=== PATIENT | female | born 1955 | race Caucasian/White ===

== ENCOUNTER → 2017-07-02 | Outpatient (CLI) | payer MEDICARE, OTHER ==
--- NOTE | 2017-07-02 17:11 | RADIOLOGY REPORT (SQ) ---
EXAM DESCRIPTION: FOOT LEFT COMPLETE COMPLETED DATE/TIME: 07/02/2017 4:24 pm REASON FOR STUDY: PAIN IN LEFT FOOT M79.672 PAIN IN LEFT FOOT COMPARISON: 10/31/2012 NUMBER OF VIEWS: Three views. TECHNIQUE: AP, lateral and oblique radiographic images acquired of the left foot. LIMITATIONS: None. FINDINGS: MINERALIZATION: Normal. BONES: No acute fracture or dislocation. No worrisome bone lesions. Screw tracks from hardware shelton olvin seen on plain films from 10/31/2012 are no longer apparent. JOINTS: There is a hallux valgus mild deformity with 1st metatarsophalangeal joint space narrowing an d bony spurring. There is 1st through 4th tarsometatarsal joint space narrowing and bony spurring SOFT TISSUES: No soft tissue swelling. No foreign body. OTHER: No other significant finding. IMPRESSION: No acute fracture or malalignment. 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
== END ==
LOC: OD 15:57
PROVIDERS: ATTEND Nurse Practitioner Acute Care
DX: M79.672 Pain in left foot (principal); M19.072 Primary osteoarthritis, left ankle and foot

== ENCOUNTER → 2018-03-19 | Outpatient (CLI) | payer MEDICARE, OTHER ==
--- NOTE | 2018-03-19 14:41 | WOMENS IMAGING REPORT ---
EXAM DESCRIPTION: BILAT DIAGNOSTIC MAMMO W/CAD; U/S BREAST UNILAT LIMITED COMPLETED DATE/TIME: 03/19/2018 12:40 pm; 03/19/2018 2:29 pm REASON FOR STUDY: N63.13 RIGHT BREAST MASS; RT BREAST N63.13 N63.13 ; N63.13 UNSPECIFIED LUMP IN T HE RIGHT BREAST, LOWER OUTER MITUL COMPARISON: None. TECHNIQUE: Standard craniocaudal and mediolateral oblique views of each breast recorded using digita l acquisition. True lateral and cone compression views right breast. LIMITATIONS: None. FINDINGS: RIGHT BREAST MASSES: Irregular mass lower outer quadrant posterior 3rd corresponding to palpable marker. CALCIFICATIONS: No new or suspicious calcifications. ARCHITECTURAL DISTORTION: None. DEVELOPING DENSITY: None. ASYMMETRY: None noted. OTHER: No other significant findings. LEFT BREAST MASSES: No suspicious masses. CALCIFICATIONS: No new or suspicious calcifications. ARCHITECTURAL DISTORTION: None. DEVELOPING DENSITY: None. ASYMMETRY: None noted. OTHER: No other significant finding. Read with the assistance of CAD: .[facility] - R2 Cenova Version 1.3 .[facility] - R2 Cenova Version 2.1 .[facility] - R2 Cenova Version 2.4 .[facility] [place] - R2 Cenova Version 2.4 .[facility] - R2 Advisory Internship Version 9.2 Ultrasound of the right breast demonstrates, lower outer quadrant 6 o'clock position posteriorly, 2.0 x 1.8 x 2.1 cm irregular hypoechoic lesion with internal flow and posterior shadowing. IMPRESSION: Suspicious mass right breast. BREAST DENSITY: b. There are scattered areas of fibroglandular density. BIRAD: 4 Suspicious. Biopsy should be considered. RECOMMENDATION: RECOMMENDED FOLLOW UP: Birads 4: Biopsy should be performed in the absence of clinic al contraindication. SPECIFIC INTERVENTION/IMAGING/CONSULTATION RECOMMENDED:The suspicious finding(s) amenable to US guide d core/vacuum assisted biopsy. COMMUNICATION:The imaging findings were not discussed with the patient. Her referring provider has be en notified of the findings. COMMENT: The patient has been notified of the results by letter per MQSA requirements. Additional no tification policies are in place for contacting patient with suspicious or incomplete findings. Quality ID #225: The [employer] recommends an annual screening mammogram for women aged 40 years or over. This facility utilizes a reminder system to ensure that all patients receive reminder letters, and/or direct phone calls for appointments. This includes reminders for routine scr eening mammograms, diagnostic mammograms, or other Breast Imaging Interventions when appropriate. Th is patient will be placed in the appropriate reminder system. The [employer] (ACR) has developed recommendations for screening MRI of the breast s in certain patient populations, to be used in conjunction with mammography. Breast MRI surveillanc e may be appropriate for women with more than 20% lifetime risk of developing breast cancer as deter mined by genetic testing, significant family history of the disease, or history of mantle radiation f or Hodgkins Disease. ACR Practice Guidelines 2008. TECHNICAL DOCUMENTATION: FINDING NUMBER: (1) ASSESSMENT: (1) JOB ID: [id number] [employer]- All Rights Reserved Reading location - IP/workstation name: [email or web address]
--- NOTE | 2018-03-19 14:41 | WOMENS IMAGING REPORT ---
EXAM DESCRIPTION: BILAT DIAGNOSTIC MAMMO W/CAD; U/S BREAST UNILAT LIMITED COMPLETED DATE/TIME: 03/19/2018 12:40 pm; 03/19/2018 2:29 pm REASON FOR STUDY: N63.13 RIGHT BREAST MASS; RT BREAST N63.13 N63.13 ; N63.13 UNSPECIFIED LUMP IN T HE RIGHT BREAST, LOWER OUTER MITUL COMPARISON: None. TECHNIQUE: Standard craniocaudal and mediolateral oblique views of each breast recorded using digita l acquisition. True lateral and cone compression views right breast. LIMITATIONS: None. FINDINGS: RIGHT BREAST MASSES: Irregular mass lower outer quadrant posterior 3rd corresponding to palpable marker. CALCIFICATIONS: No new or suspicious calcifications. ARCHITECTURAL DISTORTION: None. DEVELOPING DENSITY: None. ASYMMETRY: None noted. OTHER: No other significant findings. LEFT BREAST MASSES: No suspicious masses. CALCIFICATIONS: No new or suspicious calcifications. ARCHITECTURAL DISTORTION: None. DEVELOPING DENSITY: None. ASYMMETRY: None noted. OTHER: No other significant finding. Read with the assistance of CAD: .[facility] - R2 Cenova Version 1.3 .[facility] - R2 Cenova Version 2.1 .[facility] - R2 Cenova Version 2.4 .[facility] [place] - R2 Cenova Version 2.4 .[facility] [place] - R2 Firearms Instructor Version 9.2 Ultrasound of the right breast demonstrates, lower outer quadrant 6 o'clock position posteriorly, 2.0 x 1.8 x 2.1 cm irregular hypoechoic lesion with internal flow and posterior shadowing. IMPRESSION: Suspicious mass right breast. BREAST DENSITY: b. There are scattered areas of fibroglandular density. BIRAD: 4 Suspicious. Biopsy should be considered. RECOMMENDATION: RECOMMENDED FOLLOW UP: Birads 4: Biopsy should be performed in the absence of clinic al contraindication. SPECIFIC INTERVENTION/IMAGING/CONSULTATION RECOMMENDED:The suspicious finding(s) amenable to US guide d core/vacuum assisted biopsy. COMMUNICATION:The imaging findings were not discussed with the patient. Her referring provider has be en notified of the findings. COMMENT: The patient has been notified of the results by letter per MQSA requirements. Additional no tification policies are in place for contacting patient with suspicious or incomplete findings. Quality ID #225: The [employer] recommends an annual screening mammogram for women aged 40 years or over. This facility utilizes a reminder system to ensure that all patients receive reminder letters, and/or direct phone calls for appointments. This includes reminders for routine scr eening mammograms, diagnostic mammograms, or other Breast Imaging Interventions when appropriate. Th is patient will be placed in the appropriate reminder system. The [employer] (ACR) has developed recommendations for screening MRI of the breast s in certain patient populations, to be used in conjunction with mammography. Breast MRI surveillanc e may be appropriate for women with more than 20% lifetime risk of developing breast cancer as deter mined by genetic testing, significant family history of the disease, or history of mantle radiation f or Hodgkins Disease. ACR Practice Guidelines 2008. TECHNICAL DOCUMENTATION: FINDING NUMBER: (1) ASSESSMENT: (1) JOB ID: [id number] [employer]- All Rights Reserved Reading location - IP/workstation name: [email or web address]
== END ==
LOC: RAD 14:27
PROVIDERS: ATTEND Physician Assistant Medical
DX: N63.13 Unspecified lump in the right breast, lower outer quadrant (principal)
CPT/HCPCS: 76642; 77066

== ENCOUNTER → 2018-04-08 | Outpatient (CLI) | payer MEDICARE, OTHER ==
[2018-04-08 14:28] LABS: HEMATOCRIT 43.4 % (36.0-47.0); HEMOGLOBIN 14.7 g/dL (12.0-15.5); MEAN CORPUSCULAR HEMOGLOBIN 31.6 pg (27.0-33.4); MEAN CORPUSCULAR HGB CONC 33.8 g/dL (32.0-36.0); MEAN CORPUSCULAR VOLUME 93 fl (80-97); PLATELET COUNT 228 10^3/uL (150-450); RED BLOOD COUNT 4.65 10^6/uL (3.72-5.28); RED CELL DISTRIBUTION WIDTH 13.2 % (11.5-14.0)
[2018-04-08 14:50] LABS: ALANINE AMINOTRANSFERASE 19 U/L (9-52); ALBUMIN 4.5 g/dL (3.5-5.0); ALKALINE PHOSPHATASE 108 U/L (38-126); ANION GAP 9 (5-19); ASPARTATE AMINO TRANSFERASE 21 U/L (14-36); BILIRUBIN,DIRECT 0.3 mg/dL (0.0-0.4); BILIRUBIN,TOTAL 0.4 mg/dL (0.2-1.3); BLOOD UREA NITROGEN 15 mg/dL (7-20); CALCIUM 9.7 mg/dL (8.4-10.2); CARBON DIOXIDE 29 mmol/L (22-30); CHLORIDE 102 mmol/L (98-107); GLUCOSE 87 mg/dL (75-110); POTASSIUM 4.4 mmol/L (3.6-5.0); SODIUM 139.6 mmol/L (137-145); TOTAL PROTEIN 7.4 g/dL (6.3-8.2)
--- NOTE | 2018-04-08 14:53 | RADIOLOGY REPORT (SQ) ---
EXAM DESCRIPTION: CHEST PA/LATERAL COMPLETED DATE/TIME: 04/08/2018 2:15 pm REASON FOR STUDY: PRE OP COMPARISON: Two-view chest 04/26/2015 EXAM PARAMETERS: NUMBER OF VIEWS: two views TECHNIQUE: Digital Frontal and Lateral radiographic views of the chest acquired. RADIATION DOSE: NA LIMITATIONS: none FINDINGS: LUNGS AND PLEURA: No opacities, masses or pneumothorax. No pleural effusion. MEDIASTINUM AND HILAR STRUCTURES: No masses or contour abnormalities. HEART AND VASCULAR STRUCTURES: Heart normal size. No evidence for failure. BONES: No acute findings. HARDWARE: None in the chest. OTHER: No other significant finding. IMPRESSION: NO SIGNIFICANT RADIOGRAPHIC FINDING IN THE CHEST. TECHNICAL DOCUMENTATION: JOB ID: [id number] [employer]- All Rights Reserved Reading location - IP/workstation name: [email or web address]
--- NOTE | 2018-04-08 17:01 | EKG REPORT ---
SEVERITY:- ABNORMAL ECG - SINUS RHYTHM EARLY PRECORDIAL TRANSITION, CONSIDER OLD TRUE POST PR. : Confirmed by: Terrell Gomez MD 08-Apr-2018 17:00:36
== END ==
LOC: OD 12:59
PROVIDERS: ATTEND Surgery
DX: Z01.810 Encounter for preprocedural cardiovascular examination (principal); Z01.818 Encounter for other preprocedural examination; R05 Cough; C50.911 Malignant neoplasm of unspecified site of right female breast; I10 Essential (primary) hypertension; M19.90 Unspecified osteoarthritis, unspecified site; F41.9 Anxiety disorder, unspecified; F41.0 Panic disorder [episodic paroxysmal anxiety]; F90.9 Attention-deficit hyperactivity disorder, unspecified type; Z86.14 Personal history of Methicillin resistant Staphylococcus aureus infection; Z96.653 Presence of artificial knee joint, bilateral
CPT/HCPCS: 36415; 71046; 80053; 85027; 93005; 93010

== ENCOUNTER 2018-05-02 09:26 | Observation (INO) | payer MEDICARE, OTHER ==
[2018-04-24 10:15] LABS: HEMATOCRIT 41.6 % (36.0-47.0); HEMOGLOBIN 14.4 g/dL (12.0-15.5); MEAN CORPUSCULAR HEMOGLOBIN 31.7 pg (27.0-33.4); MEAN CORPUSCULAR HGB CONC 34.5 g/dL (32.0-36.0); MEAN CORPUSCULAR VOLUME 92 fl (80-97); PLATELET COUNT 236 10^3/uL (150-450); RED BLOOD COUNT 4.53 10^6/uL (3.72-5.28); WHITE BLOOD COUNT 4.4 10^3/uL (4.0-10.5)
[2018-04-24 10:47] LABS: ALANINE AMINOTRANSFERASE 23 U/L (9-52); ALBUMIN 4.4 g/dL (3.5-5.0); ALKALINE PHOSPHATASE 95 U/L (38-126); ANION GAP 8 (5-19); ASPARTATE AMINO TRANSFERASE 19 U/L (14-36); BILIRUBIN,DIRECT 0.1 mg/dL (0.0-0.4); BILIRUBIN,TOTAL 0.6 mg/dL (0.2-1.3); BLOOD UREA NITROGEN 15 mg/dL (7-20); CALCIUM 9.7 mg/dL (8.4-10.2); CARBON DIOXIDE 30 mmol/L (22-30); CHLORIDE 104 mmol/L (98-107); GLUCOSE 91 mg/dL (75-110); POTASSIUM 3.9 mmol/L (3.6-5.0); SODIUM 142.3 mmol/L (137-145); TOTAL PROTEIN 7.2 g/dL (6.3-8.2)
--- NOTE | 2018-04-24 19:12 | EKG REPORT ---
SEVERITY:- NORMAL ECG - SINUS RHYTHM : Confirmed by: Nilam Rodriguez MD 24-Apr-2018 19:11:27
[~2018-05-02 09:26] MED LIST: IBUPROFEN 800 MG in NORMAL SALINE 250 ML IV PRN; LACTATED RINGERS 1000 ML IV PRN; LIDOCAINE 0.5% INJ-PF (5 MG/ML) 50 ML SDV SUBCUT PRN; LIDOCAINE 4% TRANSPARENT DRESSING 5 GM KIT TP PRN; VANCOMYCIN HCL 1,000 MG in DEXTROSE 5%-WATER 250 ML IV PRN
[2018-05-02] MEDS ORDERED: LIDOCAINE 4% TRANSPARENT DRESSING 5 GM KIT ONE (09:49)
[2018-05-02] MEDS ORDERED: MIDAZOLAM 2 MG/2 ML INJ ONE (11:04)
[2018-05-02] MEDS ORDERED: FENTANYL CITRATE INJ/PF 100 MCG/2 ML AMPUL ONE ×2 (11:04→15:59)
[2018-05-02] MEDS ORDERED: HYDROMORPHONE HCL INJ/PF 2 MG/ML AMPULE ONE (11:04)
[2018-05-02] MEDS ORDERED: PROPOFOL INJ 200 MG/20 ML VIAL IV ONE (11:04)
[2018-05-02] MEDS ORDERED: ACETAMINOPHEN 1,000 MG/100 ML RTUPB IV ONE (11:05)
[2018-05-02] MEDS ORDERED: METHYLENE BLUE 50 MG/10 ML AMPULE ONE (11:22)
[2018-05-02] MEDS ORDERED: BUPIVACAINE HCL 0.25 % INJ/PF (2.5 MG/1 ML) 30 ML VIAL ONE (11:22)
[2018-05-02] MEDS ORDERED: ONDANSETRON HCL INJ/PF 4 MG/2 ML SDV ONE ×2 (12:11→15:58)
[2018-05-02] MEDS ORDERED: SUCCINYLCHOLINE CHLORIDE INJ 200 MG/10 ML VIAL ONE (12:11)
[2018-05-02] MEDS ORDERED: DEXAMETHASONE SOD PHOSPHATE INJ 4 MG/1 ML VIAL ONE (12:11)
[2018-05-02] MEDS ORDERED: ONDANSETRON HCL INJ/PF 4 MG/2 ML SDV IV PRN ×2 (13:07→15:16)
[2018-05-02] MEDS ORDERED: FENTANYL CITRATE INJ/PF 100 MCG/2 ML AMPUL IV PRN ×3 (13:07)
[2018-05-02] MEDS ORDERED: MORPHINE SULFATE 10 MG/ML INJ IV PRN ×2 (13:07→15:16)
[2018-05-02] MEDS ORDERED: DIPHENHYDRAMINE HCL 50 MG/ML VIAL IV PRN (13:07)
[2018-05-02] MEDS ORDERED: PROMETHAZINE HCL INJ 25 MG/1 ML VIAL IV PRN (13:07)
[2018-05-02] MEDS ORDERED: MEPERIDINE HCL/PF INJ 25 MG/1 ML DISP.SYRIN IV PRN (13:07)
[2018-05-02] MEDS ORDERED: MICROFIBRILLAR COLLAGEN 1 GM PACK ONE (14:13)
--- NOTE | 2018-05-02 14:38 | RADIOLOGY REPORT (SQ) ---
EXAM DESCRIPTION: NM LYMPHATICS/LYMPH GLANDS COMPLETED DATE/TIME: 05/02/2018 12:22 pm REASON FOR STUDY: RT BREAST CA C50.911 MALIGNANT NEOPLASM OF UNSP SITE OF RIGHT FEMALE BONILLA Z79.01 SENIOR CARE (CURRENT) USE OF ANTICOAGULANTS COMPARISON: None. RADIONUCLIDE AND DOSE: 561 microcuries TC-99m tilmanocept - Lymphoseek. The route of agent administration: Subcutaneous in the skin. TECHNIQUE: The skin of the right breast was prepped in sterile fashion. The radiopharmaceutical was administered in equally divided doses in the periareolar breast. LIMITATIONS: None. FINDINGS: Images demonstrate activity at the injection site. IMPRESSION: ADMINISTRATION OF RADIOPHARMACEUTICAL FOR SENTINEL LYMPH NODE EVALUATION. TECHNICAL DOCUMENTATION: JOB ID: [id number] [email or web address]- All Rights Reserved Reading location - IP/workstation name: [email or web address]
[2018-05-02] MEDS ORDERED: ALPRAZOLAM PO PRN (15:19)
[2018-05-02] MEDS ORDERED: (PENDING PHARMACY ID) (Dextroamphetamine/Amphetamine [Adderall 30 Mg Tablet] 30 MG) PO SCH (18:00)
[2018-05-02] MEDS: BUPROPION HCL 100 MG TABLET PO SCH (22:28)
[2018-05-03] MEDS: BUPROPION HCL 100 MG TABLET PO SCH (05:21)
[2018-05-03] MEDS: OXYCODONE-ACETAMINOPHEN 5-325 MG TABLET PO PRN ×2 (05:21→09:34)
[2018-05-03 10:00] VITALS: BP 116/52
[2018-05-03] MEDS ORDERED: DOCUSATE SODIUM 100 MG CAPSULE PO SCH (10:00)
[2018-05-03] MEDS ORDERED: TRAZODONE HCL 50 MG TABLET PO SCH (22:00)
--- NOTE | 2018-05-07 08:17 | PDOC DISCHARGE SUMMARY ---
General - Admit/Disc Date/PCP Admission Date/Primary Care Provider: 05/02/18 15:16 VAMSI SANTAMARIA PA-C Discharge Date: 05/03/18 - Discharge Diagnosis (1) Breast cancer Is this a current diagnosis for this admission?: Yes - Additional Information Discharge Diet: As Tolerated Discharge Activity: No Lifting Over 10 Pounds Home Medications: Alprazolam [Xanax XR 2 mg Tablet Extended Release] 1 tab PO BID PRN #8 tab.sr.2 4h 02/24/14 Bupropion HCl [Wellbutrin 100 mg Tablet] 100 mg PO TID 04/24/18 Dextroamphetamine/Amphetamine [Adderall 30 mg Tablet] 30 mg PO BID 04/24/18 Oxycodone HCl [Oxycodone HCl 10 MG Tablet] 10 mg PO TID 04/24/18 Trazodone HCl 100 mg PO DAILY 05/02/18 History of Present Illness History of Present Illness: TRACY LU is a 62 year old female admitted to the hospital for definitive surgical care of her right-sided breast cancer. The patient underwent mastectomy with sentinel lymph node biopsy. She was transferred to the floor in stable condition. Hospital Course Hospital Course: Patient was transferred to the floor after surgery. She remained in stable condition throughout her hospital stay. She began ambulating, tolerating a diet, her pain was controlled with pain medications, and on postoperative day #1 it was felt that she had reached maximal hospital benefit. At this time the patient was fit for discharge. Physical Exam Vital Signs: Temp Pulse Resp BP Pulse Ox 98.1 F 93 16 116/52 L 94 05/03/18 09:57 05/03/18 09:57 05/03/18 09:57 05/03/18 09:57 05/03/18 09:57 Results Laboratory Results: 04/24/18 09:40 04/24/18 09:40 Impressions: Lymph Scan Nuclear Medicine 05/02/18 00:00 IMPRESSION: ADMINISTRATION OF RADIOPHARMACEUTICAL FOR SENTINEL LYMPH NODE EV ALUATION. Qualifiers - * PATIENT BEING DISCHARGED WITH ANY OF THE FOLLOWING DIAGNOSIS: No Plan Discharge Plan: Discharge home. Diet as tolerated. Activity: Nonstrenuous. Wear Anibal wrap for 48 hours, then remove and shower. Replace Anibal wrap, and wear for 2 weeks. Record drain output every day. Lincoln 10/325 mg p.o. every 6 hours as needed for pain. Time Spent: Less than 30 Minutes
--- NOTE | 2018-05-07 08:28 | Operative Report ---
Nonrecallable Operative Report DATE OF SURGERY: 05/02/18 PREOPERATIVE DIAGNOSIS: Right breast cancer POSTOPERATIVE DIAGNOSIS: Same OPERATION: 1. Right sided simple mastectomy. 2. [place] lymph node biopsy of right axilla. SURGEON: JAYDON KEYS 1ST DIRECTOR OF INSTITUTIONAL GIVING: LILIAN DIAZ ANESTHESIA: GA TISSUE REMOVED OR ALTERED: 1. Right simple mastectomy. 2. [place] lymph node biopsy COMPLICATIONS: None apparent ESTIMATED BLOOD LOSS: 50 cc PROCEDURE: Drains/implants: 15 Croatian round Ayo drain x2. Procedure in detail: After informed consent was obtained, the patient was brought to the operating room and laid in the supine position. Methylene blue was injected around the nipple in an intradermal fashion in 4 quadrants. Next, the area of the right chest, axilla, and arm were prepped and draped in a normal sterile fashion. An elliptical incision was created around the nipple extending from the medial to lateral breast. This was performed with a 15 blade scalpel down to the fatty tissue of the breast. Next, skin flaps were raised superiorly and inferiorly in order to excise all of the breast tissue from the right chest wall. Once the pectoralis muscle was reached superiorly and inferior to the inframammary fold. The breast tissue was elevated and removed from the pec toralis muscle starting medially, and working laterally. The breast tissue was reflected laterally. The breast tissue was then amputated at the lateral border of the pectoralis muscle. The specimen was marked for pathology. Attention was then turned to the sentinel lymph node biopsy. The gamma probe was used to identify a hot spot in the right axilla. The hot lymph node was excised from the surrounding tissue using a mixture of sharp and blunt dissection. Hemoclips were used to ligate lymphatic vessels. Once the sentinel node was removed, an ex vivo 10-second count was performed. This measured 478. The gamma probe was again used to survey the axilla. No further hot spots could be identified. A 10-second background count of 27 was obtained. This ensured that there were no further hot spots in the axilla. Once this was completed, attention was turned to irrigation and closure. Two 15 Croatian round Ayo drains were placed into the wound bed, through separate stab incisions. They were sutured in place with 2-0 nylon suture. The subcutaneous tissue was closed using 3-0 Vicryl suture in simple interrupted fashion. The overlying skin was closed using 4-0 Vicryl Rapide suture in subcuticular fashion. Dressings were placed, and the procedure was concluded. All sponge, instrument, and needle counts were correct x2. Condition: Stable. Lilian Diaz PA-C was scrubbed and present the entirety of the procedure. She assisted with all portions of the procedure including creation of the incisions, dissection of the skin flaps, removal of the breast tissue, identifi cation of the sentinel lymph nodes, closure of the subcutaneous tissue, and closure of the skin.
== END 2018-05-03 10:56 | disposition home or self-care (01) ==
LOC: OROUT 09:26 → 4W 15:16
PROVIDERS: ADMIT Surgery; ATTEND Surgery
PROC: 07B50ZX Excision of Right Axillary Lymphatic, Open Approach, Diagnostic (ICD-10-PCS; 2018-05-02)
PROC: 0HTT0ZZ Resection of Right Breast, Open Approach (ICD-10-PCS; principal; 2018-05-02 13:30)
DX: C50.311 Malignant neoplasm of lower-inner quadrant of right female breast (principal); Z17.0 Estrogen receptor positive status [ER+]; F41.9 Anxiety disorder, unspecified; F32.9 Major depressive disorder, single episode, unspecified; F90.9 Attention-deficit hyperactivity disorder, unspecified type; I10 Essential (primary) hypertension; M19.90 Unspecified osteoarthritis, unspecified site; Z79.899 Other long term (current) drug therapy; Z86.14 Personal history of Methicillin resistant Staphylococcus aureus infection; Z96.653 Presence of artificial knee joint, bilateral
CPT/HCPCS: 93005; 36415; 85027; 80053; 88342 ×2; 88307 ×2; 78195; 93010; 19307; G0378 ×2; G0379; A9520; J2250; J1100; A9270 ×4; J3010; J2270; J1170; J3490 ×2; J0330; J2405; J7060; J7050; J2704; J3370; J0131; J1741; Q9968; 1610

== ENCOUNTER → 2018-06-26 | Outpatient (CLI) | payer MEDICARE, OTHER ==
--- NOTE | 2018-06-26 13:07 | WOMENS IMAGING REPORT ---
EXAM DESCRIPTION: BONE DENSITY HIP/SPINE COMPLETED DATE/TIME: 06/26/2018 11:43 am REASON FOR STUDY: Z78.0 AYSMPTOMATIC MENOPAUSAL STATE Z78.0 ASYMPTOMATIC MENOPAUSAL STATE C50.911 MALIGNANT NEOPLASM OF UNSP SITE OF RIGHT FEMALE BONILLA COMPARISON: None. TECHNIQUE: Dual-Energy X-ray Absorptiometry (DEXA) of the AP Spine and Hip. LIMITATIONS: None. FINDINGS: LUMBAR SPINE: The bone mineral density (BMD) measured from L1-L4 in the AP projection correlates with a T-score of +0.8, which is normal as defined by the World Health Organization. HIP: The bone mineral density (BMD) measured in the left femoral neck at the hip correlates with a T-score of -3.0, which is osteoporotic as defined by the World Health Organization. IMPRESSION: 1. LUMBAR SPINE: Normal 2. HIP: Osteoporotic COMMENT: The World Health Organization defines low BMD as follows: T-score: Normal: Greater than -1.0 Osteopenia: Between -1.0 and -2.5 Osteoporosis: Less than -2.5 without fractures Established osteoporosis: Less than -2.5 with fractures In general, you may wish to consider: Diagnosis Treatment Follow-up DEXA Normal BMD Prevention 2-3 years Osteopenia Prevention/Therapy 1-2 years Osteoporosis Therapy Yearly TECHNICAL DOCUMENTATION: JOB ID: [id number] [employer]- All Rights Reserved Reading location - IP/workstation name: [email or web address]
== END ==
LOC: WI 10:28
PROVIDERS: ATTEND Internal Medicine Medical Oncology
DX: C50.911 Malignant neoplasm of unspecified site of right female breast (principal); Z78.0 Asymptomatic menopausal state
CPT/HCPCS: 77080

== ENCOUNTER 2018-08-13 18:28 | Emergency (ER) | payer MEDICARE, OTHER ==
--- NOTE | 2018-08-13 19:02 | ER Document Report ---
ED Medical Screen (RME) - General Chief Complaint: Flank Pain Stated Complaint: POSSBLE KIDNEY STONE Time Seen by Provider: 08/13/18 19:01 Primary Care Provider: YONI VICENTE MD [Primary Care Provider] - Follow up as needed Mode of Arrival: Ambulatory Information source: Patient Notes: Patient presents complaining of right flank and side pain for the past 5 days. Patient reports difficulty voiding with hematuria. Patient states she was seen at urgent care and diagnosed with UTI. Patient states that they wanted her to be evaluated for possible kidney stone. I have greeted and performed a rapid initial assessment of this patient. A comprehensive ED assessment and evaluation of the patient, analysis of test results and completion of the medical decision making process will be conducted by additional ED providers. TRAVEL OUTSIDE OF THE [place] IN LAST 30 DAYS: No - Related Data Allergies/Adverse Reactions: Penicillins Allergy (Severe, Verified 08/13/18 18:29) swelling of tongue, rash Past Medical History - Past Medical History Cardiac Medical History: Reports: Hx Hypertension Denies: Hx Coronary Artery Disease, Hx Heart Attack Pulmonary Medical History: Denies: Hx Asthma, Hx Bronchitis, Hx COPD, Hx Pneumonia, Hx Tuberculosis Neurological Medical History: Denies: Hx Cerebrovascular Accident, Hx Seizures Renal/ Medical History: Denies: Hx End Stage Renal Disease, Hx Kidney Stones, Hx Ovarian Cysts, Hx Peritoneal Dialysis, Hx Pelvic Inflammatory Disease Malignancy Medical History: Denies: Hx Breast Cancer, Hx Cervical Cancer, Hx Leukemia, Hx Ovarian Cancer GI Medical History: Denies: Hx Crohn's Disease, Hx Gastroesophageal Reflux Disease, Hx Hiatal Hernia, Hx Irritable Bowel, Hx Liver Failure, Hx Pancreatitis, Hx Ulcer Musculoskeltal Medical History: Reports Hx Arthritis, Denies Hx Fibromyalgia, Denies Hx Muscular Dystrophy Skin Medical History: Reports Hx Cellulitis Psychiatric Medical History: Reports: Hx Anxiety, Hx Depression - meds x 8 years Denies: Hx Bipolar Disorder, Hx Post Traumatic Stress Disorder, Hx Schizophrenia Traumatic Medical History: Reports: Hx Fractures - 02/28/12 ORIF LT ankle/ft, subsequent hardware removal 10/11/12 Infectious Medical History: Denies: Hx HIV Past Surgical History: Reports: Hx Cholecystectomy - lap , Hx Hysterectomy, Hx Orthopedic Surgery - bilat knee ACL, ORIF left foot with subsequent removal of hardware, Hx Tonsillectomy - as child, Hx Urinary Tract Surgery - bladder. Denies: Hx Appendectomy, Hx Bowel Surgery, Hx Section, Hx Colostomy, Hx Coronary Artery Bypass Graft, Hx Gastric Bypass Surgery, Hx Herniorrhaphy, Hx Mastectomy, Hx Pacemaker, Hx Tubal Ligation - Immunizations Hx Diphtheria, Pertussis, Tetanus Vaccination: Yes Physical Exam - Vital signs Vitals: Temp Pulse Resp BP Pulse Ox 98.4 F 76 18 140/78 H 96 08/13/18 18:32 08/13/18 18:32 08/13/18 18:32 08/13/18 18:32 08/13/18 18:32 - Back Back: CVA tenderness - Right flank Course - Vital Signs Vital signs: Temp Pulse Resp BP Pulse Ox 98.4 F 76 18 140/78 H 96 08/13/18 18:32 08/13/18 18:32 08/13/18 18:32 08/13/18 18:32 08/13/18 18:32 Doctor's Discharge - Discharge Referrals: YONI VICENTE MD [Primary Care Provider] - Follow up as needed
[2018-08-13 20:07] LABS: ABSOLUTE EOSINOPHILS # (AUTO) 0.1 10^3/uL (0.0-0.6); ABSOLUTE LYMPHOCYTES (AUTO) 1.3 10^3/uL (0.5-4.7); ABSOLUTE MONOCYTES (AUTO) 0.6 10^3/uL (0.1-1.4); ABSOLUTE NEUT (AUTO) 5.4 10^3/uL (1.7-8.2); BASOPHILS % (AUTO) 0.3 % (0-2); EOSINOPHILS % (AUTO) 1.4 % (0-6); HEMATOCRIT 43.4 % (36.0-47.0); HEMOGLOBIN 14.5 g/dL (12.0-15.5); LYMPHOCYTES % (AUTO) 17.4 % (13-45); MEAN CORPUSCULAR HEMOGLOBIN 31.1 pg (27.0-33.4); MEAN CORPUSCULAR HGB CONC 33.5 g/dL (32.0-36.0); MEAN CORPUSCULAR VOLUME 93 fl (80-97); MONOCYTES % (AUTO) 8.6 % (3-13); PLATELET COUNT 252 10^3/uL (150-450); RED BLOOD COUNT 4.67 10^6/uL (3.72-5.28); SEGMENTED NEUTROPHILS % (AUTO) 72.3 % (42-78); TOTAL CELLS COUNTED % (AUTO) 100 %; WHITE BLOOD COUNT 7.4 10^3/uL (4.0-10.5)
[2018-08-13 20:12] LABS: APPEARANCE,URINE CLOUDY; BILIRUBIN,URINE NEGATIVE (NEGATIVE); GLUCOSE, URINE NEGATIVE (NEGATIVE); KETONES,URINE NEGATIVE (NEGATIVE); LEUKOCYTE ESTERASE,URINE SMALL (NEGATIVE); NITRITE,URINE POSITIVE (NEGATIVE); PROTEIN,URINE 100 mg/dL (NEGATIVE); URINE SPECIFIC GRAVITY 1.029
[2018-08-13 20:13] LABS: COLOR,URINE ORANGE
--- NOTE | 2018-08-13 20:14 | RADIOLOGY REPORT (SQ) ---
EXAM DESCRIPTION: CT ABDOMEN PELVIS WITHOUT IV CONTRAST COMPLETED DATE/TME: 08/13/2018 19:01 CLINICAL HISTORY: 62 years, Female, r flank pain, hematuria EXAM DESCRIPTION: CLINICAL HISTORY: r flank pain, hematuria COMPARISON: None Available. TECHNIQUE: Contiguous axial images of the abdomen and pelvis were obtained followed by reconstruction images. This exam was performed according to our departmental dose-optimization program, which includes automated exposure control, adjustment of the mA and/or kV according to patient size and/or use of iterative reconstruction technique. FINDINGS: There is grade 1 anterolisthesis of L4 and L5. The gallbladder is surgically absent. There is moderate stool in the proximal colon. There is fairly abrupt transition from mildly dilated gas-filled: To mildly narrow caliber in the left upper quadrant. This is at the splenic flexure. It could be transient peristalsis but underlying lesion is not entirely excluded. There is chronic diverticulosis without evidence of diverticulitis. No definite focal mass of the colonic wall is seen. Follow-up is recommended if symptoms persist. There is pancreatic atrophy. Best seen on image 23 of series 3 is a possible mass of the pancreatic tail measuring approximately 1.5 cm, but I believe that instead this is normal variant as this region appears normal on reconstructions. There is mild soft tissue stranding of the pelvic fat surrounding the urinary bladder. The bladder is collapsed. Cystitis is possible and clinical correlation is advised. The liver, spleen, and kidneys are within normal limits. There is no hydronephrosis or renal stones. The gallbladder is unremarkable by CT criteria. Adrenal glands are within normal limits. Aorta is of normal caliber and tapering. There is no free fluid in the abdomen or pelvis. There is no other evidence of bowel obstruction. There is no other stranding of the mesenteric fat to suggest an inflammatory response. No definite evidence of appendicitis. There is no pericecal inflammation. IMPRESSION: Possible inflammation of the urinary bladder. Nonspecific fairly abrupt narrowing of the colon at the splenic flexure could be due to peristalsis. Follow-up is recommended if symptoms persist. Probable normal variant of the tail of the pancreas. See additional findings above. No other acute abnormality.
[2018-08-13 20:24] LABS: ALANINE AMINOTRANSFERASE 25 U/L (9-52); ALBUMIN 4.4 g/dL (3.5-5.0); ALKALINE PHOSPHATASE 102 U/L (38-126); ANION GAP 6 (5-19); ASPARTATE AMINO TRANSFERASE 25 U/L (14-36); BILIRUBIN,DIRECT 0.2 mg/dL (0.0-0.4); BILIRUBIN,TOTAL 0.3 mg/dL (0.2-1.3); BLOOD UREA NITROGEN 18 mg/dL (7-20); CALCIUM 9.6 mg/dL (8.4-10.2); CARBON DIOXIDE 31 mmol/L (22-30); CHLORIDE 103 mmol/L (98-107); GLUCOSE 82 mg/dL (75-110); POTASSIUM 4.4 mmol/L (3.6-5.0); SODIUM 140.4 mmol/L (137-145); TOTAL PROTEIN 7.3 g/dL (6.3-8.2)
[2018-08-13] MEDS ORDERED: ONDANSETRON HCL INJ/PF 4 MG/2 ML SDV IV ONE (21:36)
[2018-08-13] MEDS ORDERED: CEFTRIAXONE 1 GM/D5W RTU 1 GM/50 ML RTUPB IV ONE (21:36)
[2018-08-13] MEDS ORDERED: MORPHINE SULFATE 10 MG/ML INJ IV ONE (21:36)
[2018-08-13] MEDS ORDERED: ONDANSETRON ODT 4 MG TAB (6 TAB/ER DISP) PO PRN (22:02)
[2018-08-13] MEDS ORDERED: HYDROCODONE/ACETAMINOPHEN 5-325 MG (6 TAB/ER DISP) PO PRN (22:03)
--- NOTE | 2018-08-13 22:03 | ER Document Report ---
ED GI/ - General Chief Complaint: Flank Pain Stated Complaint: POSSBLE KIDNEY STONE Time Seen by Provider: 08/13/18 19:01 Primary Care Provider: YONI VICENTE MD [NO LOCAL MD] - Follow up as needed Mode of Arrival: Ambulatory Notes: Patient is a 62-year-old female that comes emergency department for chief complaint of dysuria and right flank pain. She states that symptoms have been worsening over the past 2 to 3 days. She felt chills at home, she vomited earlier today. She states she is worried she is passing a kidney stone, she has passed these in the past. She denies chest pain, shortness of breath, abdominal pain. She has had a cholecystectomy, history of breast cancer and mastectomy. TRAVEL OUTSIDE OF THE [place] IN LAST 30 DAYS: No - Related Data Allergies/Adverse Reactions: Penicillins Allergy (Severe, Verified 08/13/18 18:29) swelling of tongue, rash Past Medical History - General Information source: Patient - Social History Smoking Status: Never Smoker Chew tobacco use (# tins/day): No Drug Abuse: None Lives with: Family Family History: CAD - no early family hx Patient has suicidal ideation: No Patient has homicidal ideation: No - Past Medical History Cardiac Medical History: Reports: Hx Hypertension Denies: Hx Coronary Artery Disease, Hx Heart Attack Pulmonary Medical History: Denies: Hx Asthma, Hx Bronchitis, Hx COPD, Hx Pneumonia, Hx Tuberculosis Neurological Medical History: Denies: Hx Cerebrovascular Accident, Hx Seizures Renal/ Medical History: Denies: Hx End Stage Renal Disease, Hx Kidney Stones, Hx Ovarian Cysts, Hx Peritoneal Dialysis, Hx Pelvic Inflammatory Disease Malignancy Medical History: Denies: Hx Breast Cancer, Hx Cervical Cancer, Hx Leukemia, Hx Ovarian Cancer GI Medical History: Denies: Hx Crohn's Disease, Hx Gastroesophageal Reflux Dis ease, Hx Hiatal Hernia, Hx Irritable Bowel, Hx Liver Failure, Hx Pancreatitis, Hx Ulcer Musculoskeletal Medical History: Reports Hx Arthritis, Denies Hx Fibromyalgia, Denies Hx Muscular Dystrophy Skin Medical History: Reports Hx Cellulitis Psychiatric Medical History: Reports: Hx Anxiety, Hx Depression - meds x 8 years Denies: Hx Bipolar Disorder, Hx Post Traumatic Stress Disorder, Hx Schizophrenia Traumatic Medical History: Reports: Hx Fractures - 02/28/12 ORIF LT ankle/ft, subsequent hardware removal 10/11/12 Infectious Medical History: Denies: Hx HIV Past Surgical History: Reports: Hx Cholecystectomy - lap , Hx Hysterectomy, Hx Orthopedic Surgery - bilat knee ACL, ORIF left foot with subsequent removal of hardware, Hx Tonsillectomy - as child, Hx Urinary Tract Surgery - bladder. Denies: Hx Appendectomy, Hx Bowel Surgery, Hx Section, Hx Colostomy, Hx Coronary Artery Bypass Graft, Hx Gastric Bypass Surgery, Hx Herniorrhaphy, Hx Mastectomy, Hx Pacemaker, Hx Tubal Ligation - Immunizations Hx Diphtheria, Pertussis, Tetanus Vaccination: Yes Hx Pneumococcal Vaccination: 11/20/11 Review of Systems - Review of Systems Constitutional: No symptoms reported EENT: No symptoms reported Cardiovascular: No symptoms reported Respiratory: No symptoms reported Gastrointestinal: See HPI Genitourinary: See HPI Female Genitourinary: No symptoms reported Musculoskeletal: No symptoms reported Skin: No symptoms reported Hematologic/Lymphatic: No symptoms reported Neurological/Psychological: No symptoms reported Physical Exam - Vital signs Vitals: Temp Pulse Resp BP Pulse Ox 98.4 F 76 18 140/78 H 96 08/13/18 18:32 08/13/18 18:32 08/13/18 18:32 08/13/18 18:32 08/13/18 18:32 - Notes Notes: GENERAL: Alert, interacts well. No acute distress. HEAD: Normocephalic, atraumatic. EYES: Pupils equal, round, and reactive to light. Extraocular movements intact. ENT: Oral mucosa moist, tongue midline. Oropharynx unremarkable. Airway patent. NECK: Full range of motion. Supple. Trachea midline. LUNGS: Clear to auscultation bilaterally, no wheezes, rales, or rhonchi. No respiratory distress. HEART: Regular rate and rhythm. No murmur ABDOMEN: Soft, non-tender. Non-distended. Bowel sounds present in all 4 quadrants. GENITOURINARY: Deferred EXTREMITIES: Moves all 4 extremities spontaneously. No edema, normal radial and dorsalis pedis pulses bilaterally. No cyanosis. BACK: no cervical, thoracic, lumbar midline tenderness. No saddle anesthesia, normal distal neurovascular exam. Moves all extremities in full range of motion. NEUROLOGICAL: Alert and oriented x3. Normal speech. Cranial nerves II through XII grossly intact. PSYCH: Normal affect, normal mood. SKIN: Warm, dry, normal turgor. No rashes or lesions noted. Course - Re-evaluation Re-evalutation: Patient is alert, smiling, well-appearing on her exam. She is complaining of some pain. She has a soft benign abdomen. Physical exam is completely unremarkable. Vital signs also are unremarkable. No fever or tachycardia. CBC, chemistry unremarkable. Urine shows infection, based on her flank pain I suspect she does have pyelonephritis. With patient's history of kidney stones CAT scan was performed, this shows no obstructive stone or any stone at all. There is questionable appearance of the bowel, however her abdomen is completely benign on exam. Discussed with patient. Patient will be treated with antibiotics, pain medication, and she will follow-up closely with her primary care provider for additional evaluation including probable colonoscopy/endoscopy. Provided with a copy of her report. Discussed return precautions. Patient states understanding and agreement. - Vital Signs Vital signs: Temp Pulse Resp BP Pulse Ox 97.7 F 68 16 131/68 H 96 08/13/18 23:03 08/13/18 23:03 08/13/18 23:03 08/13/18 23:03 08/13/18 23:03 - Laboratory Result Diagrams: 08/13/18 19:10 08/13/18 19:10 Laboratory results interpreted by me: 08/13/18 08/13/18 19:00 19:10 Carbon Dioxide 31 H Urine Protein 100 H Urine Blood LARGE H Urine Nitrite POSITIVE H Urine Urobilinogen 4.0 H Ur Leukocyte Esterase SMALL H Discharge - Discharge Clinical Impression: Dysuria, Right flank pain Condition: Stable Disposition: HOME, SELF-CARE Additional Instructions: The CAT scan does not show passing stones. You do have a urinary tract infection, this appears to be a bladder infection progressing to pyelonephritis (kidney infection) as we discussed. Take the antibiotics as prescribed, take the pain medication if needed, take the nausea medication if needed. Consider [id number] stool softener such as Colace while using the pain medication. Your CAT scan has a slightly abnormal appearance of the bowel, this could be normal, however I recommend very close follow-up with primary care for additional management (we do not want to miss a potentially cancerous lesion). Return if you worsen including return vomiting, fever, severe worsening pain, or any other concerning or worsening symptoms. Prescriptions: Cephalexin Monohydrate [Keflex 500 mg Capsule] 500 mg PO BID 7 Days #14 capsule Morphine Sulfate [Morphine Ir 15 Mg Tablet] 15 mg PO TID PRN #10 tablet PRN Reason: Ondansetron [Zofran Odt 4 mg Tablet] 1 - 2 tab PO Q4H PRN #15 tab.rapdis PRN Reason: For Nausea/Vomiting Referrals: YONI VICENTE MD [NO LOCAL MD] - Follow up as needed
[2018-08-13 23:04] VITALS: BP 131/68
== END 2018-08-13 23:25 | disposition home or self-care (01) ==
LOC: ER 18:28
DX: R30.0 Dysuria (principal); R10.9 Unspecified abdominal pain; R11.10 Vomiting, unspecified; I10 Essential (primary) hypertension; Z88.0 Allergy status to penicillin; Z90.49 Acquired absence of other specified parts of digestive tract; Z85.3 Personal history of malignant neoplasm of breast; Z90.710 Acquired absence of both cervix and uterus
CPT/HCPCS: 99284; 96375; 96365; 36415; 87086; 85025; 87088; 80053; 81001; 87186; 74176; J2270; J2405; J0696; A9270 ×2

== ENCOUNTER 2018-09-24 07:06 | Day surgery (SDC) | payer MEDICARE, OTHER ==
--- NOTE | 2018-09-17 17:37 | EKG REPORT ---
SEVERITY:- NORMAL ECG - SINUS RHYTHM : Confirmed by: Nilam Rodriguez MD 17-Sep-2018 14:56:57
[~2018-09-24 07:06] MED LIST changes: -IBUPROFEN 800 MG in NORMAL SALINE 250 ML IV PRN; -LIDOCAINE 4% TRANSPARENT DRESSING 5 GM KIT TP PRN; +MIDAZOLAM 2 MG/2 ML INJ IV PRN; +MIDAZOLAM 2 MG/2 ML INJ ONE; +PROPOFOL INJ 200 MG/20 ML VIAL IV ONE; -VANCOMYCIN HCL 1,000 MG in DEXTROSE 5%-WATER 250 ML IV PRN
[2018-09-24] MEDS ORDERED: MIDAZOLAM 2 MG/2 ML INJ ONE (07:59)
[2018-09-24 11:52] VITALS: BP 154/65
--- NOTE | 2018-09-24 16:45 | Discharge Summary ---
Discharge Summary (SDC) - Discharge Final Diagnosis: Melanosis coli Date of Surgery: 09/24/18 Discharge Date: 09/24/18 Condition: Good Forms: ASU Anesthesia D/C Instruction, Discharge POC-Surgical Service Treatment or Instructions: Discharge home. Diet as tolerated. Activity: Nonstrenuous. Follow-up with me in 2 weeks. Fiber supplement twice daily. Referrals: JAYDON KEYS MD [ACTIVE STAFF] - 10/07/18 9:45 am Discharge Diet: As Tolerated Respiratory Treatments at Home: Deep Breathing/Coughing, Incentive Spirometer Discharge Activity: Activity As Tolerated, Balance Activity w/Rest, No Driving, Slowly Increase Activity, Walk Frequently Home Care Assistance: None Needed Report the Following to Your Physician Immediately: Shortness of Breath, Nausea, Vomiting, Increase in Pain, Fever over 101 Degrees, Unusual Bleeding, Redness, Swelling, Warmth, Increased Soreness, Large Clots, IV Site Infection Signs
--- NOTE | 2018-09-24 16:50 | Operative Report ---
Nonrecallable Operative Report DATE OF SURGERY: 09/24/18 PREOPERATIVE DIAGNOSIS: Suggestion of stricture of the splenic flexure on CT scan. POSTOPERATIVE DIAGNOSIS: 1. No mucosal lesions, strictures, or suggestion of malignancy. 2. Melanosis coli. OPERATION: Colonoscopy to the cecum SURGEON: JAYDON KEYS ANESTHESIA: LMAC TISSUE REMOVED OR ALTERED: None COMPLICATIONS: None apparent ESTIMATED BLOOD LOSS: None PROCEDURE: Drains/implants: None. Procedure in detail: After informed consent was obtained, the patient was brought to the operating room and laid in the left lateral decubitus position. The endoscope was passed up the rectum, sigmoid colon, descending colon, across the transverse colon, down the ascending colon, and into the cecum. The ileocecal valve and appendiceal orifice were identified. The scope was then withdrawn, circumferentially noting the mucosa. The prep was fair. The colon required multiple washings and suctioning's in order to visualize the entirety of the mucosa. This was successful. Throughout the colon, melanosis coli was identified. The scope was withdrawn past the ascending colon, transverse colon. Great attention was taken to the distal transverse colon and descending colon. The scope was withdrawn past the descending, sigmoid colon, and into the rectum. A retroflexion maneuver was performed noting no significant internal hemorrhoids. The scope was then straightened, air was suctioned from the rectum, the scope was removed, and the procedure was concluded. Please note there was no evidence of stricture throughout the colon. There were no mucosal abnormalities aside from the aforementioned melanosis coli. No polyps, tumors, ulcerations, inflammation, or bleeding was identified. Condition: Stable.
== END 2018-09-24 11:20 | disposition home or self-care (01) ==
LOC: END 07:06
PROVIDERS: ATTEND Surgery
DX: K63.89 Other specified diseases of intestine (principal); I10 Essential (primary) hypertension; Z86.14 Personal history of Methicillin resistant Staphylococcus aureus infection; Z85.3 Personal history of malignant neoplasm of breast
CPT/HCPCS: 45378; 93005; 93010; J2250; J2704; 811

== ENCOUNTER → 2018-12-31 | Outpatient (CLI) | payer MEDICARE, OTHER ==
--- NOTE | 2018-12-31 11:43 | WOMENS IMAGING REPORT ---
EXAM DESCRIPTION: LEFT DIAGNOSTIC MAMMO W/CAD COMPLETED DATE/TIME: 12/31/2018 10:12 am REASON FOR STUDY: Z85.3 PERSONAL HISTORY OF MALIGNANT NEOPLASM OF BREAST Z85.3 PERSONAL HISTORY OF MALIGNANT NEOPLASM OF BREAST COMPARISON: 03/19/2018. EXAM PARAMETERS: Standard craniocaudal and mediolateral oblique images of the breast recorded with d igital acquisition. Left true lateral view. Read with the assistance of CAD. .[facility] - [employer] Version 9.2 LIMITATIONS: None. FINDINGS: BREAST LATERALITY: Left MASSES: No suspicious masses. CALCIFICATIONS: No new or suspicious calcifications. ARCHITECTURAL DISTORTION: None. ASYMMETRY: None noted. OTHER: No other significant findings. IMPRESSION: No worrisome findings in the left breast. BREAST DENSITY: b. There are scattered areas of fibroglandular density. BIRAD: ASSESSMENT: 1 Negative. RECOMMENDATION: RECOMMENDED FOLLOW UP: Yearly unilateral screening left mammography. SPECIFIC INTERVENTION/IMAGING/CONSULTATION RECOMMENDED:No additional intervention/ imaging/consultati on needed at this time. COMMUNICATION:No significant abnormalities to discuss with the patient today. COMMENT: The patient has been notified of the results by letter per [place] requirements. Additional no tification policies are in place for contacting patient with suspicious or incomplete findings. Quality ID #[id number]: The [employer] recommends an annual screening mammogram for women aged 40 years or over. This facility utilizes a reminder system to ensure that all patients receive reminder letters, and/or direct phone calls for appointments. This includes reminders for routine scr eening mammograms, diagnostic mammograms, or other Breast Imaging Interventions when appropriate. Th is patient will be placed in the appropriate reminder system. TECHNICAL DOCUMENTATION: FINDING NUMBER: (1) ASSESSMENT: (1) JOB ID: [id number] [email or web address]- All Rights Reserved Reading location - IP/workstation name: [email or web address]
== END ==
LOC: WI 09:51
PROVIDERS: ATTEND Surgery
DX: Z08 Encounter for follow-up examination after completed treatment for malignant neoplasm (principal); Z85.3 Personal history of malignant neoplasm of breast
CPT/HCPCS: 77065

== ENCOUNTER 2019-08-05 12:22 | Emergency (ER) | payer MEDICARE, OTHER ==
[2019-08-05] MEDS ORDERED: NORMAL SALINE 1000 ML 1,000 ML IV ONE (14:29)
[2019-08-05] MEDS ORDERED: METOCLOPRAMIDE HCL INJ/PF 10 MG/2 ML SDV IV ONE (14:30)
[2019-08-05] MEDS ORDERED: DIPHENHYDRAMINE HCL 50 MG/ML VIAL IV ONE (14:30)
--- NOTE | 2019-08-05 14:30 | ER Document Report ---
ED GI/ - General Chief Complaint: Nausea Stated Complaint: NAUSEA/VOMITING/FEVER Time Seen by Provider: 08/05/19 14:04 Mode of Arrival: Ambulatory Information source: Patient Notes: 63-year-old female past medical history significant for breast cancer, depression presents to the emergency room complaining of nausea, vomiting with a headache for the past week. States she gets dizzy whenever she stands up. Headache is located to the back of her neck and radiates to the top of her head. Describes it as a throbbing sensation. No head trauma or head injury. No history of migraines. No sudden thunderclap. Denies worst headache of her life. Denies any diarrhea. Denies any recent travel. Denies any COVID-19 exposure. States has been taking her Vicodin which she takes for joint pain which is not helping with her headache. Patient states she had a mastectomy in February and is on oral hormones instead of chemo and radiation. Has not followed up with her primary care physician or her oncologist for symptoms for the past week. No other ill contacts. No one at home is ill. TRAVEL OUTSIDE OF THE [place] IN LAST 30 DAYS: No - Related Data Allergies/Adverse Reactions: Penicillins Allergy (Severe, Verified 09/17/18 10:03) swelling of tongue, rash Past Medical History - General Information source: Patient - Social History Smoking Status: Unknown if Ever Smoked Chew tobacco use (# tins/day): No Frequency of alcohol use: None Drug Abuse: None Lives with: Family Family History: CAD - no early family hx Patient has homicidal ideation: No - Past Medical History Cardiac Medical History: Reports: Hx Hypertension Denies: Hx Coronary Artery Disease, Hx Heart Attack Pulmonary Medical History: Denies: Hx Asthma, Hx Bronchitis, Hx COPD, Hx Pneumonia, Hx Tuberculosis Neurological Medical History: Denies: Hx Cerebrovascular Accident, Hx Seizures Renal/ Medical History: Denies: Hx End Stage Renal Disease, Hx Kidney Stones, Hx Ovarian Cysts, Hx Peritoneal Dialysis, Hx Pelvic Inflammatory Disease Malignancy Medical History: Denies: Hx Breast Cancer, Hx Cervical Cancer, Hx Leukemia, Hx Ovarian Cancer GI Medical History: Denies: Hx Crohn's Disease, Hx Gastroesophageal Reflux Disease, Hx Hiatal Hernia, Hx Irritable Bowel, Hx Liver Failure, Hx Pancreatitis, Hx Ulcer Musculoskeletal Medical History: Reports Hx Arthritis, Denies Hx Fibromyalgia, Denies Hx Muscular Dystrophy Skin Medical History: Reports Hx Cellulitis Psychiatric Medical History: Reports: Hx Anxiety, Hx Depression - meds x 8 years Denies: Hx Bipolar Disorder, Hx Post Traumatic Stress Disorder, Hx Schizophrenia Traumatic Medical History: Reports: Hx Fractures - 02/28/12 ORIF LT ankle/ft, subsequent hardware removal 10/11/12 Infectious Medical History: Denies: Hx HIV Past Surgical History: Reports: Hx Cholecystectomy - lap , Hx Hysterectomy, Hx Orthopedic Surgery - bilat knee ACL, ORIF left foot with subsequent removal of hardware, Hx Tonsillectomy - as child, Hx Urinary Tract Surgery - bladder. Denies: Hx Appendectomy, Hx Bowel Surgery, Hx Sec tion, Hx Colostomy, Hx Coronary Artery Bypass Graft, Hx Gastric Bypass Surgery, Hx Herniorrhaphy, Hx Mastectomy, Hx Pacemaker, Hx Tubal Ligation - Immunizations Hx Diphtheria, Pertussis, Tetanus Vaccination: Yes Hx Pneumococcal Vaccination: 11/20/11 Review of Systems - Review of Systems Constitutional: No symptoms reported EENT: No symptoms reported Cardiovascular: No symptoms reported Respiratory: No symptoms reported Gastrointestinal: Nausea, Vomiting. denies: Abdominal pain, Diarrhea, Constipation Skin: No symptoms reported Neurological/Psychological: Headaches -: Yes All other systems reviewed and negative Physical Exam - Vital signs Vitals: Temp 97 F L 08/05/19 12:22 - General General appearance: Appears well, Alert In distress: Mild - HEENT Head: Normocephalic, Atraumatic Eyes: Normal Extraocular movements intact: Yes - Negative for nystagmus Pupils: PERRL Pharynx: Normal Neck: Normal. No: Anterior cervical chain, Posterior cervical chain, Lymphadenopathy - Respiratory Respiratory status: No respiratory distress Chest status: Nontender Breath sounds: Normal Chest palpation: Normal - Cardiovascular Rhythm: Regular Heart sounds: Normal auscultation Murmur: No Friction rub: No Gallop: None auscultated - Back Back: Normal, Nontender. No: CVA tenderness - Neurological Neuro grossly intact: Yes Cognition: Normal Orientation: AAOx4 [place] Coma Scale Eye Opening: Spontaneous [place] Coma Scale Verbal: Oriented [place] Coma Scale Motor: Obeys Commands [place] Coma Scale Total: 15 Speech: Normal Motor strength normal: LUE, RUE, LLE, RLE Sensory: Normal - Skin Skin Temperature: Warm Skin Moisture: Dry Skin Color: Normal Course - Re-evaluation Re-evalutation: 08/05/19 16:19 Patient is resting comfortably dizziness, nausea, vomiting have resolved. States her headache is almost fully resolved. Reviewed CT results with patient. Aware of need for transfer to [place]. Patient is agreeable to transfer. 08/05/19 16:58 Patient had a reconstructive breast surgery with Dr. Marti. Case was staffed with ED physician Dr. Conklin who states that Dr. Marti likes to be notified about his patients. Call was placed and discussed with Dr. Marti about the meningioma. No advice was offered. Thanked me for my call. 08/05/19 17:50 Patient is resting comfortably she is totally asymptomatic. She is able to ambulate without difficulty. She is neurologically and neurovascularly intact discussed with patient that I have spoken with the neurosurgeon at [facility], Dr. Scruggs who will see the patient within the next week. All findings were discussed in length. Patient is aware that they will contact her within the week for an appointment she will be given their phone number if she does not hear from them within the next 2 or 3 days she is to give them a call. Will be discharged home on Reglan. Encourage fluids. Patient was given strict return to the emergency room guidelines. Return for any new or worsening symptoms. All questions were answered. Patient verbalized understanding and agrees with plan of care. - Vital Signs Vital signs: Temp Pulse Resp BP Pulse Ox 98.5 F 81 16 114/76 100 08/05/19 18:39 08/05/19 18:39 08/05/19 18:39 08/05/19 18:39 08/05/19 18:39 - Laboratory Result Diagrams: 08/05/19 14:07 08/05/19 14:07 Laboratory results interpreted by me: 08/05/19 08/05/19 08/05/19 14:07 14:07 16:40 Hgb 15.8 H Sodium 136.8 L Potassium 3.5 L Urine Ketones TRACE H Ur Leukocyte Esterase TRACE H - Diagnostic Test Radiology reviewed: Reports reviewed - EKG Interpretation by Me Additional EKG results interpreted by me: 08/05/19 16:21 EKG was seen and interpreted by ED physician Dr. Martínez No acute STEMI. Discharge - Discharge Clinical Impression: Dizziness, Meningioma, Frontal mass of brain Nausea and vomiting Qualifiers: Vomiting type: unspecified Vomiting Intractability: non-intractable Qualified Code(s): R11.2 - Nausea with vomiting, unspecified Headache Qualifiers: Headache type: unspecified Headache chronicity pattern: unspecified pattern Intractability: not intractable Qualified Code(s): R51 - Headache Condition: Stable Disposition: HOME, SELF-CARE Instructions: Antinausea Medication ([facility]), Headache ([facility]), Reglan ([facility]), Vomiting ([facility]) Additional Instructions: Tylenol as needed for pain. Reglan as needed for nausea. Outpatient follow-up with Dr. Scruggs as discussed. Their phone number if you do not hear from them is [phone] . return for any new or worsening symptoms. Prescriptions: Metoclopramide HCl [Reglan 10 mg Tablet] 10 mg PO ACHS #12 tablet
[2019-08-05 14:42] LABS: ABSOLUTE LYMPHOCYTES (AUTO) 1.2 10^3/uL (0.5-4.7); ABSOLUTE MONOCYTES (AUTO) 0.5 10^3/uL (0.1-1.4); ABSOLUTE NEUT (AUTO) 4.3 10^3/uL (1.7-8.2); BASOPHILS % (AUTO) 0.2 % (0-2); EOSINOPHILS % (AUTO) 0.4 % (0-6); HEMATOCRIT 46.1 % (36.0-47.0); HEMOGLOBIN 15.8 g/dL (12.0-15.5); LYMPHOCYTES % (AUTO) 19.1 % (13-45); MEAN CORPUSCULAR HEMOGLOBIN 31.6 pg (27.0-33.4); MEAN CORPUSCULAR HGB CONC 34.4 g/dL (32.0-36.0); MEAN CORPUSCULAR VOLUME 92 fl (80-97); MONOCYTES % (AUTO) 8.3 % (3-13); PLATELET COUNT 254 10^3/uL (150-450); RED BLOOD COUNT 5.02 10^6/uL (3.72-5.28); RED CELL DISTRIBUTION WIDTH 13.7 % (11.5-14.0); TOTAL CELLS COUNTED % (AUTO) 100 %
[2019-08-05 15:01] LABS: ALBUMIN 4.6 g/dL (3.5-5.0); ALKALINE PHOSPHATASE 111 U/L (38-126); ANION GAP 9 (5-19); ASPARTATE AMINO TRANSFERASE 26 U/L (14-36); BILIRUBIN,TOTAL 0.5 mg/dL (0.2-1.3); BLOOD UREA NITROGEN 11 mg/dL (7-20); CARBON DIOXIDE 29 mmol/L (22-30); CHLORIDE 99 mmol/L (98-107); CREATINE KINASE 38 U/L (30-135); GLUCOSE 100 mg/dL (75-110); POTASSIUM 3.5 mmol/L (3.6-5.0); TOTAL PROTEIN 8.2 g/dL (6.3-8.2)
--- NOTE | 2019-08-05 16:00 | RADIOLOGY REPORT (SQ) ---
EXAM DESCRIPTION: CT HEAD WITHOUT IMAGES COMPLETED DATE/TIME: 08/05/2019 3:27 pm REASON FOR STUDY: dizzy COMPARISON: None. TECHNIQUE: Axial images acquired through the brain without intravenous contrast. Images reviewed wi th bone, brain and subdural windows. Additional sagittal and coronal reconstructions were generated. Images stored on PACS. All CT scanners at this facility use dose modulation, iterative reconstruction, and/or weight based d osing when appropriate to reduce radiation dose to as low as reasonably achievable (ALARA). [facility]: Dose Right [facility]: CareDose [facility]: Dose Right [facility]: Teradose 4D [facility]: Smart [employer] RADIATION DOSE: CT Rad equipment meets quality standard of care and radiation dose reduction techniq ues were employed. CTDIvol: 53.2 mGy. DLP: 1017 mGy-cm. LIMITATIONS: None. FINDINGS: VENTRICLES: Normal size and contour. The cisterns are patent. CEREBRUM: No hemorrhage. No midline shift. No evidence for acute infarction. Normal umanzor/white mat ter differentiation. No areas of low density in the white matter. CEREBELLUM: No masses. No hemorrhage. No alteration of density. No evidence for acute infarction. EXTRAAXIAL SPACES: A 3.8 cm x 1.6 cm fairly homogeneous extra-axial left frontotemporal lobe mass ad jacent to the calvarium. Hyperostosis of the adjacent calvarium. No evidence for significant surroun ding edema. Considerations for this finding includes meningioma. ORBITS AND GLOBE: No intra- or extraconal masses. Normal contour of globe without masses. CALVARIUM: No fracture. PARANASAL SINUSES: Inhomogeneous opacification of the sphenoid sinus on the left. No fluid. SOFT TISSUES: No mass or hematoma. OTHER: Right TMJ mild arthrosis. IMPRESSION: 1. A fairly homogeneous extra-axial calcified left frontotemporal lobe mass as above. Considerations for this finding includes meningioma, with other underlying pathology not entirely exc luded. Correlation suggested, additional imaging and Neuro consult. 2. Chronic sphenoid sinus disease. 3. Right TMJ mild arthrosis. EVIDENCE OF ACUTE STROKE: NO. COMMENT: 1. The results of this examination were discussed with emergency department provider on at 15:52 hours. Quality ID # [id number]: Final reports with documentation of one or more dose reduction techniques (e.g., Au tomated exposure control, adjustment of the mA and/or kV according to patient size, use of iterative reconstruction technique) TECHNICAL DOCUMENTATION: JOB ID: [id number] 2010 [employer]- All Rights Reserved Reading location - IP/workstation name: [email or web address]
[2019-08-05 16:55] LABS: CREATINE KINASE MB 0.57 ng/mL (<4.55)
[2019-08-05 16:59] LABS: TROPONIN I < 0.012 ng/mL
[2019-08-05 17:00] LABS: APPEARANCE,URINE SLIGHTLY-CLOUDY; BILIRUBIN,URINE NEGATIVE (NEGATIVE); COLOR,URINE YELLOW; GLUCOSE, URINE NEGATIVE (NEGATIVE); KETONES,URINE TRACE mg/dL (NEGATIVE); LEUKOCYTE ESTERASE,URINE TRACE (NEGATIVE); NITRITE,URINE NEGATIVE (NEGATIVE); PROTEIN,URINE NEGATIVE (NEGATIVE); UROBILINOGEN,URINE NEGATIVE mg/dL (<2.0)
[2019-08-05 18:41] VITALS: BP 114/76
--- NOTE | 2019-08-05 19:58 | EKG REPORT ---
SEVERITY:- BORDERLINE ECG - SINUS RHYTHM PROBABLE LEFT ATRIAL ABNORMALITY : Confirmed by: Terrell Gomez MD 05-Aug-2019 19:58:10
== END 2019-08-05 18:39 | disposition home or self-care (01) ==
LOC: ER 12:22
DX: G93.9 Disorder of brain, unspecified (principal); D32.9 Benign neoplasm of meninges, unspecified; R11.2 Nausea with vomiting, unspecified; R51 Headache; R42 Dizziness and giddiness; M25.50 Pain in unspecified joint; Z79.891 Long term (current) use of opiate analgesic; Z79.899 Other long term (current) drug therapy; Z85.3 Personal history of malignant neoplasm of breast; Z90.10 Acquired absence of unspecified breast and nipple; Z88.0 Allergy status to penicillin
CPT/HCPCS: 93005; 99284; 96361; 96374; 96375; 36415; 82553; 82550; 85025; 80053; 81001; 84484; 70450; 93010; J1200; J2765; J7030

== ENCOUNTER 2019-08-12 14:49 | Emergency (ER) | payer MEDICARE, OTHER ==
--- NOTE | 2019-08-12 15:31 | ER Document Report ---
ED Medical Screen (RME) - General Chief Complaint: Headache Stated Complaint: HEADACHE Time Seen by Provider: 08/12/19 15:23 Information source: Patient Notes: This 63-year-old female who presented to the emergency room today stating that she was here last week diagnosed with a tumor in her head date wanted to transfer divide however there was an insurance issue and she has not been able to get any follow-up. TRAVEL OUTSIDE OF THE [place] IN LAST 30 DAYS: No - HPI Onset: Just prior to arrival Onset/Duration: Sudden Quality of pain: No pain Associated Symptoms: None Exacerbated by: Denies Relieved by: Denies - Related Data Allergies/Adverse Reactions: Penicillins Allergy (Severe, Verified 09/17/18 10:03) swelling of tongue, rash Past Medical History - General Information source: Patient - Social History Frequency of alcohol use: None Drug Abuse: None Lives with: Alone Family history: None - Medical History Medical History: Negative - Past Medical History Cardiac Medical History: Reports: Hx Hypertension Denies: Hx Coronary Artery Disease, Hx Heart Attack Pulmonary Medical History: Denies: Hx Asthma, Hx Bronchitis, Hx COPD, Hx Pneumonia, Hx Tuberculosis Neurological Medical History: Denies: Hx Cerebrovascular Accident, Hx Seizures Renal/ Medical History: Denies: Hx End Stage Renal Disease, Hx Kidney Stones, Hx Ovarian Cysts, Hx Peritoneal Dialysis, Hx Pelvic Inflammatory Disease Malignancy Medical History: Denies: Hx Breast Cancer, Hx Cervical Cancer, Hx Leukemia, Hx Ovarian Cancer GI Medical History: Denies: Hx Crohn's Disease, Hx Gastroesophageal Reflux Disease, Hx Hiatal Hernia, Hx Irritable Bowel, Hx Liver Failure, Hx Pancreatitis, Hx Ulcer Musculoskeltal Medical History: Reports Hx Arthritis, Denies Hx Fibromyalgia, Denies Hx Muscular Dystrophy Skin Medical History: Reports Hx Cellulitis Psychiatric Medical History: Reports: Hx Anxiety, Hx Depression - meds x 8 years Denies: Hx Bipolar Disorder, Hx Post Traumatic Stress Disorder, Hx Schizophrenia Traumatic Medical History: Reports: Hx Fractures - 02/28/12 ORIF LT ankle/ft, subsequent hardware removal 10/11/12 Infectious Medical History: Denies: Hx HIV Past Surgical History: Reports: Hx Cholecystectomy - lap , Hx Hysterectomy, Hx Orthopedic Surgery - bilat knee ACL, ORIF left foot with subsequent removal of hardware, Hx Tonsillectomy - as child, Hx Urinary Tract Surgery - bladder. Denies: Hx Appendectomy, Hx Bowel Surgery, Hx Section, Hx Colostomy, Hx Coronary Artery Bypass Graft, Hx Gastric Bypass Surgery, Hx Herniorrhaphy, Hx Mastectomy, Hx Pacemaker, Hx Tubal Ligation - Immunizations Hx Diphtheria, Pertussis, Tetanus Vaccination: Yes Review of Systems - Review of Systems Constitutional: No symptoms reported EENT: No symptoms reported Cardiovascular: No symptoms reported Respiratory: No symptoms reported Gastrointestinal: No symptoms reported Genitourinary: No symptoms reported Female Genitourinary: No symptoms reported Musculoskeletal: No symptoms reported Skin: No symptoms reported Hematologic/Lymphatic: No symptoms reported Neurological/Psychological: No symptoms reported Physical Exam - Vital signs Vitals: Temp Pulse Resp BP Pulse Ox 98.8 F 85 20 143/87 H 99 08/12/19 14:54 08/12/19 14:54 08/12/19 14:54 08/12/19 14:54 08/12/19 14:54 Course - Vital Signs Vital signs: Temp Pulse Resp BP Pulse Ox 98.8 F 85 20 143/87 H 99 08/12/19 14:54 08/12/19 14:54 08/12/19 14:54 08/12/19 14:54 08/12/19 14:54
[2019-08-12] MEDS ORDERED: DIPHENHYDRAMINE HCL 50 MG/ML VIAL IV ONE (16:22)
[2019-08-12] MEDS ORDERED: NORMAL SALINE 1000 ML 1,000 ML IV ONE (16:22)
[2019-08-12] MEDS ORDERED: PROCHLORPERAZINE EDISYLATE INJ 10 MG/2 ML VIAL IV ONE (16:22)
[2019-08-12 17:36] LABS: ABSOLUTE EOSINOPHILS # (AUTO) 0.1 10^3/uL (0.0-0.6); ABSOLUTE LYMPHOCYTES (AUTO) 1.2 10^3/uL (0.5-4.7); ABSOLUTE MONOCYTES (AUTO) 0.5 10^3/uL (0.1-1.4); ABSOLUTE NEUT (AUTO) 3.4 10^3/uL (1.7-8.2); BASOPHILS % (AUTO) 0.6 % (0-2); EOSINOPHILS % (AUTO) 1.7 % (0-6); HEMATOCRIT 42.7 % (36.0-47.0); HEMOGLOBIN 14.3 g/dL (12.0-15.5); MEAN CORPUSCULAR HEMOGLOBIN 31.2 pg (27.0-33.4); MEAN CORPUSCULAR HGB CONC 33.4 g/dL (32.0-36.0); MEAN CORPUSCULAR VOLUME 93 fl (80-97); PLATELET COUNT 274 10^3/uL (150-450); RED BLOOD COUNT 4.57 10^6/uL (3.72-5.28); RED CELL DISTRIBUTION WIDTH 13.7 % (11.5-14.0); SEGMENTED NEUTROPHILS % (AUTO) 65.7 % (42-78); TOTAL CELLS COUNTED % (AUTO) 100 %; WHITE BLOOD COUNT 5.2 10^3/uL (4.0-10.5)
[2019-08-12 17:51] LABS: ALBUMIN 4.3 g/dL (3.5-5.0); ALKALINE PHOSPHATASE 90 U/L (38-126); ANION GAP 6 (5-19); ASPARTATE AMINO TRANSFERASE 21 U/L (14-36); BILIRUBIN,TOTAL 0.4 mg/dL (0.2-1.3); BLOOD UREA NITROGEN 12 mg/dL (7-20); CALCIUM 9.5 mg/dL (8.4-10.2); CARBON DIOXIDE 28 mmol/L (22-30); CHLORIDE 103 mmol/L (98-107); GLUCOSE 87 mg/dL (75-110); POTASSIUM 4.1 mmol/L (3.6-5.0); TOTAL PROTEIN 7.4 g/dL (6.3-8.2)
[2019-08-12] MEDS ORDERED: MORPHINE SULFATE 10 MG/ML INJ IV ONE (18:08)
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
[2019-08-12 18:37] LABS: APPEARANCE,URINE CLEAR; BILIRUBIN,URINE NEGATIVE (NEGATIVE); COLOR,URINE STRAW; GLUCOSE, URINE NEGATIVE (NEGATIVE); KETONES,URINE NEGATIVE (NEGATIVE); LEUKOCYTE ESTERASE,URINE MODERATE (NEGATIVE); NITRITE,URINE NEGATIVE (NEGATIVE); PROTEIN,URINE NEGATIVE (NEGATIVE); URINE SPECIFIC GRAVITY 1.003; UROBILINOGEN,URINE NEGATIVE mg/dL (<2.0)
[2019-08-12] MEDS ORDERED: DOXYCYCLINE HYCLATE 100 MG TABLET PO ONE (18:37)
[2019-08-12] MEDS ORDERED: HYDROCODONE/ACETAMINOPHEN 5-325 MG (6 TAB/ER DISP) PO PRN (19:31)
[2019-08-12 19:56] VITALS: BP 136/75
== END 2019-08-12 19:57 | disposition home or self-care (01) ==
LOC: ER 14:49
DX: D32.9 Benign neoplasm of meninges, unspecified (principal); R51 Headache; Z63.8 Other specified problems related to primary support group; R11.2 Nausea with vomiting, unspecified; C50.919 Malignant neoplasm of unspecified site of unspecified female breast; G89.29 Other chronic pain; R41.0 Disorientation, unspecified; R19.7 Diarrhea, unspecified; T14.8XXA Other injury of unspecified body region, initial encounter; W57.XXXA Bitten or stung by nonvenomous insect and other nonvenomous arthropods, initial encounter; F32.9 Major depressive disorder, single episode, unspecified; F41.9 Anxiety disorder, unspecified; Z79.891 Long term (current) use of opiate analgesic
CPT/HCPCS: 99284; 96361; 96374; 96375; 36415; 83690; 85025; 80053; 81001; 86757; J1200; A9270 ×2; J2270; J0780; J7030